=== PATIENT | male | born 1950 | race Caucasian/White ===

== ENCOUNTER 2017-12-02 09:21 | Emergency (ER) | payer OTHER ==
[~2017-12-02] VITALS: Ht 165.1 cm; Wt 104.3 kg
--- NOTE | 2017-12-02 09:58 | ED NECK/BACK PAIN COMPLAINT ---
History of Present Illness General Chief Complaint: Low Back Pain/Injury Stated Complaint: LOW BACK PAIN Source: patient Exam Limitations: no limitations Vital Signs & Intake/Output Vital Signs & Intake/Output Vital Signs Date Time Temp Pulse Resp B/P B/P Pulse O2 O2 Flow FiO2 Mean Ox Delivery Rate 12/03 931 98 Room Air 12/03 923 98.2 72 18 177/64 97 Room Air Room Air Allergies Coded Allergies: No Known Allergies (12/02/17) Reconcile Medications No Known Home Medications Triage Note: TRIAGE: 67 Y/O MALE PRESENTS C/O 10/10 LOWER BACK PAIN SINCE THIS MORNING. REPORTS PAIN RELIEVED WITH AMBULATION. Triage Nurses Notes Reviewed? yes HPI: The patient is a 67 y/o male with PMHx significant for DM2, Stage 3 CKD, Hypercholesterol, HTN, hypothyroid, and GERD who presents with sharp right lower back pain. The patient reported he woke up with sharp 8/10 right lower back pain this AM. He reports the pain is worse with lying down and with sitting and is better with standing. There is no radiation He reports the pain is associated with an urge to deficate. Patient denies any recent bowel or bladder changes. He denies any abdominal pain, fever, chills, CP, SOB, or recent illnesses. Past History Travel History Traveled to [place] past 21 day No Medical History Any Pertinent Medical History? see below for history Cardiovascular: hypertension, hyperlipidemia Gastrointestinal: GERD Renal: chronic kidney disease Endocrine: diabetes, hypothyroidism Other Medical Hx: Low Testesterone Surgical History Surgical History: non-contributory Psychosocial History What is your primary language Slovak Tobacco Use: Never used ETOH Use: occasional use Illicit Drug Use: denies illicit drug use Family History Hx Contributory? No Review of Systems Review of Systems Constitutional: Reports: no symptoms. Eyes: Reports: no symptoms. Ears, Nose, Throat, Mouth: Reports: no symptoms. Respiratory: Reports: no symptoms. Cardiovascular: Reports: no symptoms. Gastrointestinal/Abdominal: Reports: no symptoms. Musculoskeletal: Reports: back pain. Skin: Reports: no symptoms. Neurological/Psychological: Reports: no symptoms. Physical Exam Physical Exam General Appearance: alert, awake, comfortable, obese Head: atraumatic Eyes: Bilateral: normal appearance, EOMI. Ears, Nose, Throat, Mouth: hearing grossly normal Neck: normal inspection, supple, full range of motion Respiratory: normal breath sounds Cardiovascular: regular rate/rhythm, edema Peripheral Pulses: 2+ radial (R), 2+ radial (L), 1+ tibialis posterior (R), 1+ tibialis posterior ( L), 1+ dorsalis pedis (R), 1+ dorsalis pedis (L) Gastrointestinal: normal bowel sounds, soft, non-tender, no organomegaly Back: reproducible right lower back pain Extremities: leg swelling Core Measures CVA/TIA Diagnosis: No Progress Differential Diagnosis: herniated disc, myofascial strain, pyelo/UTI, ureterolithiasis, nephrolithiasis Plan of Care: Orders Procedure Date/time Status URINALYSIS 12/02 948 Complete Laboratory Tests 12/02/17 1020: Urine Color STRAW, Urine Clarity CLEAR, Urine pH 6.0, Ur Specific [place] 1.025, Urine Protein 30 H, Urine Ketones NEG, Urine Nitrite NEG, Urine Bilirubin NEG, Urine Urobilinogen 0.2, Ur Leukocyte Esterase NEG, Ur Microscopic SEDIMENT EXAMINED, Urine RBC RARE, Urine Bacteria RARE H, Urine Mucus RARE, Urine Hemoglobin NEG, Urine Glucose NEG 67-year-old male presented with right lower back pain with recent onset. CT scan revealed 2 mm kidney stone. Patient discharged on Flomax and short-term Percocet prescriptions. He is advised to follow-up with his primary care provider and urologist. Return to the emergency department with any new or worsening symptoms. Patient was stable at time of discharge. Diagnostic Imaging: Viewed by Me: CT Scan. Discussed w/RAD: CT Scan. Radiology Impression: PATIENT: ADAM OWENS PRESENT AGE: 67 PATIENT ACCOUNT NO: [id number] : 49 LOCATION: [facility] ORDERING PHYSICIAN: Scout Boyle MD SERVICE DATE: 12/02/17 EXAM TYPE: CAT - CT ABD & PELVIS W/O IV CONTRAS EXAMINATION: CT ABDOMEN AND PELVIS WITHOUT CONTRAST CLINICAL INFORMATION: Right lower back pain. Kidney disease. Presumptive diagnosis of nephrolithiasis versus MSK pain. COMPARISON: Renal ultrasound dated 08/18/2014. TECHNIQUE: Multidetector volumetric imaging was performed from the superior aspect of the liver through the pubic symphysis. Sagittal and coronal reformatted images were obtained on the technologist workstation. DLP: 1100.29 mGy-cm. FINDINGS: LUNG BASES: The visualized lung bases are unremarkable. LIVER, GALLBLADDER, AND BILIARY TREE: The liver is normal in size, shape, and attenuation. No focal hepatic lesion on noncontrast imaging. No biliary ductal dilatation is present. Multiple small calcified gallstones are seen layering within the gallbladder. The gallbladder is otherwise unremarkable with no evidence of gallbladder wall thickening or obvious pericholecystic inflammatory changes. PANCREAS: Unremarkable on noncontrast imaging. SPLEEN, ADRENAL GLANDS: Unremarkable on noncontrast imaging. KIDNEYS AND URETERS: There is mild right-sided hydroureteronephrosis with prominent extrarenal pelvis and mild right perinephric stranding. A partially obstructing 0.2 cm calcification is seen in the distal right ureter, approximately 2 cm proximal to the ureterovesical junction. No right or left renal calculi or left ureteral calculi or bladder calculi are seen. BLADDER: Unremarkable. PELVIC VISCERA: Unremarkable. GASTROINTESTINAL TRACT: Small retrocardiac hiatal hernia. The small and large bowel are unremarkable. The appendix is surgically absent. ABDOMINAL WALL: There is a small fat-containing umbilical hernia. Several subcutaneous densities, some with subcutaneous locules of air are seen in the anterior abdominal wall, consistent with small injection granulomas. LYMPH NODES, VASCULAR: Unremarkable. OSSEOUS STRUCTURES: There is a convex right thoracolumbar scoliosis and moderate vertebral spondylosis in the lower thoracic spine and moderate vertebral spondylosis and degenerative disc disease in the lower lumbar spine. Moderate facet arthropathy seen in the lower lumbar spine. IMPRESSION: 1. Mild right-sided hydroureteronephrosis and perinephric stranding due to a partially obstructing 0.2 cm calcification in the distal right ureter, approximately 2 cm proximal to the ureterovesical junction. 2. No additional renal, ureteral or bladder calculi. 3. Cholelithiasis with no evidence of acute cholecystitis. 4. Small retrocardiac hiatal hernia and fat- containing umbilical hernia. DICTATED BY: Peggy Cho MD DATE/TIME DICTATED :12/02/171022 BOW MAKER CUSTOM:MILENA DATE/TIME TRANSCRIBED:12/02/171022 CONFIDENTIAL, DO NOT COPY WITHOUT APPROPRIATE AUTHORIZATION. < Electronically signed in Other Vendor System> SIGNED BY: Peggy Cho MD. 12/02/17 1041 Departure Departure Disposition: HOME OR SELF CARE Condition: Stable Clinical Impression Primary Impression: Nephrolithiasis Referrals: Jovany PORTILLO,Jeremiah Whitfield MD,Desean Additional Instructions: Increase fluid intake over the next couple of days. Take Flomax and Percocet as directed. Follow-up with your PCP and/or urologist. Return to the emergency department with new or worsening symptoms. Departure Forms: Customer Survey General Discharge Information Prescriptions: Current Visit Scripts Oxycodone HCl/Acetaminophen (Percocet 5-325 MG Tablet) 1-2 TAB PO Q6P PRN PAIN #12 TAB Tamsulosin HCl (Flomax) 1 CAP PO DAILY #14 CAP
--- NOTE | 2017-12-02 10:41 | CT SCAN REPORT ---
EXAMINATION: CT ABDOMEN AND PELVIS WITHOUT CONTRAST CLINICAL INFORMATION: Right lower back pain. Kidney disease. Presumptive diagnosis of nephrolithiasis versus MSK pain. COMPARISON: Renal ultrasound dated 08/18/2014. TECHNIQUE: Multidetector volumetric imaging was performed from the superior aspect of the liver through the pubic symphysis. Sagittal and coronal reformatted images were obtained on the technologist workstation. DLP: 1100.29 mGy-cm. FINDINGS: LUNG BASES: The visualized lung bases are unremarkable. LIVER, GALLBLADDER, AND BILIARY TREE: The liver is normal in size, shape, and attenuation. No focal hepatic lesion on noncontrast imaging. No biliary ductal dilatation is present. Multiple small calcified gallstones are seen layering within the gallbladder. The gallbladder is otherwise unremarkable with no evidence of gallbladder wall thickening or obvious pericholecystic inflammatory changes. PANCREAS: Unremarkable on noncontrast imaging. SPLEEN, ADRENAL GLANDS: Unremarkable on noncontrast imaging. KIDNEYS AND URETERS: There is mild right-sided hydroureteronephrosis with prominent extrarenal pelvis and mild right perinephric stranding. A partially obstructing 0.2 cm calcification is seen in the distal right ureter, approximately 2 cm proximal to the ureterovesical junction. No right or left renal calculi or left ureteral calculi or bladder calculi are seen. BLADDER: Unremarkable. PELVIC VISCERA: Unremarkable. GASTROINTESTINAL TRACT: Small retrocardiac hiatal hernia. The small and large bowel are unremarkable. The appendix is surgically absent. ABDOMINAL WALL: There is a small fat-containing umbilical hernia. Several subcutaneous densities, some with subcutaneous locules of air are seen in the anterior abdominal wall, consistent with small injection granulomas. LYMPH NODES, VASCULAR: Unremarkable. OSSEOUS STRUCTURES: There is a convex right thoracolumbar scoliosis and moderate vertebral spondylosis in the lower thoracic spine and moderate vertebral spondylosis and degenerative disc disease in the lower lumbar spine. Moderate facet arthropathy seen in the lower lumbar spine. IMPRESSION: 1. Mild right-sided hydroureteronephrosis and perinephric stranding due to a partially obstructing 0.2 cm calcification in the distal right ureter, approximately 2 cm proximal to the ureterovesical junction. 2. No additional renal, ureteral or bladder calculi. 3. Cholelithiasis with no evidence of acute cholecystitis. 4. Small retrocardiac hiatal hernia and fat-containing umbilical hernia.
[2017-12-02] MEDS ORDERED: FLOMAX0.4 M1 PO (10:58)
[2017-12-02] MEDS ORDERED: PERCOCET 5-3251 EACH PO (10:58)
[2017-12-02 11:06] VITALS: BP 158/74
== END 2017-12-02 11:05 ==
LOC: ERH 09:21
DX: N20.0 Calculus of kidney (principal); I10 Essential (primary) hypertension; E78.5 Hyperlipidemia, unspecified; K21.9 Gastro-esophageal reflux disease without esophagitis; N18.3 Chronic kidney disease, stage 3 (moderate); E03.9 Hypothyroidism, unspecified; E11.9 Type 2 diabetes mellitus without complications
CPT/HCPCS: 74176; 81001